=== PATIENT | female | born 1930 | race Caucasian/White ===

== ENCOUNTER 2019-03-18 13:26 | Emergency (ER) | payer OTHER ==
[~2019-03-18] VITALS: Ht 162.6 cm; Wt 43.1 kg
[2019-03-18 14:07] VITALS: Ht 162.6 cm; Wt 43.1 kg
[2019-03-18 16:14] VITALS: BP 147/82
== END 2019-03-18 16:14 | disposition home or self-care (01) ==
LOC: ED 13:26
DX: S61.512A Laceration without foreign body of left wrist, initial encounter (principal); S09.8XXA Other specified injuries of head, initial encounter; W18.39XA Other fall on same level, initial encounter; Y93.89 Activity, other specified; Y92.89 Other specified places as the place of occurrence of the external cause; Y99.8 Other external cause status
CPT/HCPCS: 90715